=== PATIENT | female | born 1980 | race Hispanic/Latino ===

== ENCOUNTER 2023-04-04 08:59 | Emergency (ER) | payer OTHER ==
[~2023-04-04] VITALS: Ht 160 cm; Wt 70.3 kg
[2023-04-04] MEDS: CYCLOBENZAPRINE HCL 10 MG TABLET PO ONE (09:51)
[2023-04-04] MEDS: ACETAMINOPHEN 500 MG TABLET PO ONE (09:51)
[2023-04-04] MEDS ORDERED: IBUP-2077 PO (09:58)
[2023-04-04] MEDS ORDERED: CYCL-309 PO (09:58)
[2023-04-04 10:30] VITALS: BP 124/70; PULSE 86; RESP 18; O2SAT 98
== END 2023-04-04 10:31 | disposition home or self-care (01) ==
LOC: EDH 08:59
DX: S46.812A Strain of other muscles, fascia and tendons at shoulder and upper arm level, left arm, initial encounter (principal); S39.012A Strain of muscle, fascia and tendon of lower back, initial encounter; S40.022A Contusion of left upper arm, initial encounter; Z90.49 Acquired absence of other specified parts of digestive tract; Z98.890 Other specified postprocedural states; V89.2XXA Person injured in unspecified motor-vehicle accident, traffic, initial encounter; Y93.I9 Activity, other involving external motion; Y92.488 Other paved roadways as the place of occurrence of the external cause; Y99.8 Other external cause status
CPT/HCPCS: 72100; 73030; 73080; 73110

== ENCOUNTER → 2023-09-03 | Outpatient (CLI) | payer OTHER ==
[~2023-09-03] MED LIST: AMOX1TAB16 PO; CYCL-309 PO; IBUP-2077 PO; PHEN-847 PO
== END | disposition home or self-care (01) ==
LOC: RAH 08:31
PROVIDERS: ATTEND Internal Medicine
DX: E05.00 Thyrotoxicosis with diffuse goiter without thyrotoxic crisis or storm (principal); E05.90 Thyrotoxicosis, unspecified without thyrotoxic crisis or storm
CPT/HCPCS: 78014; 76536; A9516

== ENCOUNTER 2023-09-10 12:52 | Emergency (ER) | payer OTHER ==
[~2023-09-10] VITALS: Ht 160 cm; Wt 67.1 kg
[~2023-09-10 12:52] MED LIST changes: -AMOX1TAB16 PO; -PHEN-847 PO
[2023-09-10] MEDS: 0.9%NACL 1000ML 1,000 ML IV ONE (14:12)
[2023-09-10] MEDS: KETOROLAC 30MG VIAL (30MG/ML) IVP ONE (14:13)
[2023-09-10 14:19] LABS: BASOPHILS # (AUTO) 0.04 K/uL (0.00-0.20); BASOPHILS % (AUTO) 0.5 % (0.0-5.0); EOSINOPHILS # (AUTO) 0.07 K/uL (0.00-0.70); EOSINOPHILS % (AUTO) 0.9 % (0.0-8.0); HEMATOCRIT 48.7 % (36-48); IMMATURE GRANULOCYTE ABSOLUTE 0.06 K/uL (0-1); LYMPHOCYTES # (AUTO) 1.9 K/uL (1.0-4.8); LYMPHOCYTES % (AUTO) 25.5 % (21.0-51.0); MEAN CORPUSCULAR HEMOGLOBIN 30.9 pg (27.0-33.0); MEAN CORPUSCULAR HGB CONC 32.2 g/dL (32.0-36.0); MEAN CORPUSCULAR VOLUME 95.9 fL (79-99); MONOCYTES # (AUTO) 0.5 K/uL (0.1-1.0); MONOCYTES % (AUTO) 6.4 % (3.0-13.0); NEUTROPHILS % (AUTO) 65.9 % (40.0-77.0); PLATELET COUNT (AUTO) 251 K/uL (130-400); RED BLOOD CELL COUNT(AUTO) 5.08 MIL/uL (4.00-5.50); WHITE BLOOD COUNT (AUTO) 7.5 K/uL (4.8-10.8)
[2023-09-10 14:20] LABS: APPEARANCE,URINE CLOUDY (CLEAR); BILIRUBIN,URINE NEGATIVE (NEGATIVE); COLOR,URINE DARK-YELLOW (YELLOW); GLUCOSE, URINE (UA) NEGATIVE (NEGATIVE); KETONES,URINE NEGATIVE (NEGATIVE); LEUKOCYTE ESTERASE ,URINE 500 Leu/uL (NEGATIVE); NITRATE,URINE 1+ (NEGATIVE); OCCULT BLOOD,URINE SMALL (NEGATIVE); PH,URINE 5.5 (5.0-8.0); PROTEIN,URINE NEGATIVE (NEGATIVE); UROBILINOGEN,URINE 0.2 mg/dL (0.2-1.0)
[2023-09-10 14:21] LABS: ADD UA MICROSCOPIC YES
[2023-09-10 14:27] LABS: BACTERIA,URINE FEW /HPF (None Seen); MUCUS,URINE RARE LPF (None Seen); NON-SQUAMOUS EPITHELIAL CELL 1 /HPF (0-2); SQUAMOUS EPITHELIAL CELL,UR FEW /HPF (0-2); WBC,URINE 26-50 /HPF (0-1)
[2023-09-10 14:34] VITALS: BP 127/86; PULSE 91; RESP 16; O2SAT 100
[2023-09-10 14:43] LABS: CREATININE 0.5 mg/dL (0.5-1.0); POTASSIUM 4.1 mmol/L (3.5-5.1)
[2023-09-10 14:52] LABS: ALBUMIN 4.2 g/dL (3.5-5.0); BILIRUBIN,TOTAL 0.6 mg/dL (0.2-1.0); TOTAL PROTEIN, SERUM 7.9 g/dL (6.0-8.3)
[2023-09-10] MEDS ORDERED: PHEN-847 PO (15:27)
[2023-09-10] MEDS ORDERED: AMOX1TAB16 PO (15:27)
[2023-09-10] MEDS: CEFTRIAXONE 1G VIAL IVPB ONE (15:35)
[2023-09-10] MEDS: AMOX/CLAV 875/125MG TAB PO ONE (15:39)
== END 2023-09-10 15:40 | disposition home or self-care (01) ==
LOC: EDH 12:52
DX: N30.01 Acute cystitis with hematuria (principal); Z79.899 Other long term (current) drug therapy; Z90.49 Acquired absence of other specified parts of digestive tract; Z98.890 Other specified postprocedural states
CPT/HCPCS: 99285; 74176; 96374; 96361; 80053; 83690; 85025; 87086 ×2; 87186; 81001; 81025; 36415; J7030; J1885